=== PATIENT | female | born 1960 | race Caucasian/White ===

== ENCOUNTER 2017-07-10 14:14 | Emergency (ER) | payer OTHER ==
[~2017-07-10] VITALS: Ht 157.5 cm; Wt 527.1 kg
[2017-07-10 16:17] VITALS: BP 105/68
== END 2017-07-10 16:17 | disposition home or self-care (01) ==
LOC: ED 14:14
DX: J32.9 Chronic sinusitis, unspecified (principal); Z90.89 Acquired absence of other organs

== ENCOUNTER 2018-03-27 20:35 | Inpatient (IN) | payer MEDICAID ==
[~2018-03-27] VITALS: Ht 157.5 cm; Wt 58.0 kg
[2018-03-27] MEDS ORDERED: METHADONE HCL10 MG PO (21:51)
[2018-03-27 22:15] LABS: BASOPHIL % 0.6 % (0-2); PLATELET COUNT 200 x10^3mcL (130-400); RED CELL DISTRIBUTION WIDTH 12.5 % (11.5-14.5)
[2018-03-27 22:19] LABS: CALCIUM 8.6 mg/dL (8.5-10.1); CARBON DIOXIDE 26.8 mmol/L (21-32); CREATININE SERUM 1.2 mg/dL (0.6-1.0)
[2018-03-27 22:24] LABS: BILIRUBIN TOTAL 0.82 mg/dL (0.20-1.00); TOTAL PROTEIN, SERUM 7.9 g/dL (6.4-8.2)
[2018-03-27 22:35] LABS: ALBUMIN 3.1 g/dL (3.4-5.0)
[2018-03-27 23:01] LABS: UA SPECIFIC GRAVITY >=1.030 (1.005-1.035); microscopic required? YES; urine erythrocyte NEGATIVE (NEGATIVE)
[2018-03-28] VITALS (7 sets, daily range): BP systolic 75–104; BP diastolic 37–60; Ht 157.5 cm; Wt 58.0 kg
[2018-03-28 00:27] LABS: CHOLESTEROL/HDL RATIO 4.5; MAGNESIUM 1.8 mg/dL (1.8-2.4); PHOSPHOROUS 2.1 mg/dL (2.5-4.9)
[2018-03-28 00:29] LABS: FREE T4 1.21 ng/dL (0.76-1.46); T4(THYROXINE) 9.3 ug/dL (4.7-13.3)
[2018-03-28 00:31] LABS: T3 TOTAL 0.73 ng/mL
[2018-03-28 00:49] LABS: AMPHETAMINE QUAL UR POSITIVE (See below)
[2018-03-28 06:42] LABS: PLATELET COUNT 139 x10^3mcL (130-400); RED CELL DISTRIBUTION WIDTH 13.2 % (11.5-14.5)
[2018-03-28 06:54] LABS: CALCIUM 7.4 mg/dL (8.5-10.1); CARBON DIOXIDE 22.2 mmol/L (21-32); CREATININE SERUM 1.1 mg/dL (0.6-1.0); MAGNESIUM 1.7 mg/dL (1.8-2.4); PHOSPHOROUS 3.3 mg/dL (2.5-4.9); POTASSIUM SERUM 4.2 mmol/L (3.5-5.1)
[2018-03-28] MEDS ORDERED: LEVAQUIN750 MG PO (08:15)
[2018-03-28] MEDS ORDERED: LAC PO (08:16)
[2018-03-28 10:00] LABS: BAND NEUTROPHIL 37 % (0-10); BASOPHIL 0 % (0-2); METAMYELOCTE 1 % (0-2); MONOCYTE 9 % (0-7); SEGMENTED NEUTROPHILS 47 % (37-75)
== END 2018-03-28 11:32 | disposition home or self-care (01) | DRG 140 ==
LOC: ED 20:35 → DU 23:36
PROVIDERS: Emergency Medicine; Family Medicine
DX: J44.0 Chronic obstructive pulmonary disease with (acute) lower respiratory infection (principal); N17.0 Acute kidney failure with tubular necrosis; J18.9 Pneumonia, unspecified organism; E44.0 Moderate protein-calorie malnutrition; F11.10 Opioid abuse, uncomplicated; N39.0 Urinary tract infection, site not specified; B18.2 Chronic viral hepatitis C; E87.1 Hypo-osmolality and hyponatremia; D64.9 Anemia, unspecified; E78.5 Hyperlipidemia, unspecified; R80.9 Proteinuria, unspecified; Z87.891 Personal history of nicotine dependence
CPT/HCPCS: 83880; 84439; J0456; J0696; J1885; J3490; J7030; J7050; J7620

== ENCOUNTER 2019-03-12 16:59 | Emergency (ER) | payer OTHER ==
[~2019-03-12] VITALS: Ht 157.5 cm; Wt 52.6 kg
[~2019-03-12 16:59] MED LIST: LAC PO; LEVAQUIN750 MG PO; METHADONE HCL10 MG PO
[2019-03-12 17:20] VITALS: Ht 157.5 cm; Wt 52.6 kg
[2019-03-12 19:25] LABS: microscopic required? NO
[2019-03-12 19:41] LABS: urine erythrocyte NEGATIVE (NEGATIVE)
[2019-03-12 20:13] LABS: BASOPHIL % 0.5 % (0-2); PLATELET COUNT 203 x10^3mcL (130-400); RED CELL DISTRIBUTION WIDTH 13.1 % (11.5-14.5)
[2019-03-12 20:32] LABS: CALCIUM 9.2 mg/dL (8.5-10.1); CARBON DIOXIDE 27.8 mmol/L (21-32); CHLORIDE SERUM 103 mmol/L (98-107); CREATININE SERUM 0.9 mg/dL (0.6-1.0); GFR1 > 60 mL/min; GLUCOSE SERUM 87 mg/dL (74-106); POTASSIUM SERUM 3.9 mmol/L (3.5-5.1); SODIUM SERUM 139 mmol/L (136-145)
[2019-03-12 20:39] LABS: CK-MB 1.2 ng/mL (0-3.6)
[2019-03-12 20:41] LABS: ALBUMIN 3.5 g/dL (3.4-5.0); ALKALINE PHOSPHATASE 100 U/L (46-116); ALT/SGPT 40 U/L (14-59); AST/SGOT 38 U/L (15-37); BILIRUBIN TOTAL 0.48 mg/dL (0.20-1.00); C REACTIVE PROTEIN 1.8 mg/dL (<=0.9)
[2019-03-12 22:09] LABS: ERYTHROCYTE SED RATE 40 mm/hr (0-30)
[2019-03-12 22:17] VITALS: BP 117/59
== END 2019-03-12 22:35 | disposition home or self-care (01) ==
LOC: ED 16:59
PROVIDERS: Specialist
DX: R10.11 Right upper quadrant pain (principal); R51 Headache; R50.9 Fever, unspecified; Z90.89 Acquired absence of other organs; Z86.19 Personal history of other infectious and parasitic diseases
CPT/HCPCS: 87804; J1885; J3010; J7030